=== PATIENT | male | born 1985 | race Caucasian/White ===

== ENCOUNTER 2023-12-05 09:46 | Emergency (ER) | payer OTHER ==
[2023-12-05 09:59] VITALS: RESP 18
--- NOTE | 2023-12-05 10:29 | US ---
EXAMINATION TYPE: US venous doppler duplex LE LT DATE OF EXAM: 12/05/2023 10:01 AM COMPARISON: NONE CLINICAL INDICATION: Male, 38 years old with history of dvt; Left lower leg pain and swelling, histor y of DVT, patient on blood thinners SIDE PERFORMED: Left TECHNIQUE: The lower extremity deep venous system is examined utilizing real time linear array sonog toby with graded compression, doppler sonography and color-flow sonography. VESSELS IMAGED: Common Femoral Vein Deep Femoral Vein Greater Saphenous Vein * Femoral Vein Popliteal Vein Small Saphenous Vein * Proximal Calf Veins (* superficial vessels) Grayscale, color doppler, spectral doppler imaging performed of the deep veins of the left lower extr emity. There is normal flow, compressibility, vascular waveforms. Left Leg: Appears negative for DVT IMPRESSION: No deep venous thrombosis of the left lower extremity.
[2023-12-05] MEDS: ACETAMINOPHEN TAB 500 MG TAB PO STA (11:19)
--- NOTE | 2023-12-05 11:38 | ED ---
General Adult HPI - General Chief complaint: Recheck/Abnormal Lab/Rx Stated complaint: Rule out DVT Time Seen by Provider: 12/05/23 09:50 Source: patient Mode of arrival: EMS Limitations: no limitations - History of Present Illness Initial comments: 38-year-old male presents emergency department from [facility]. Patient has been a resident there for some time. He does have history of DVT in his lower extremity. He is on Eliquis. States has been taking his medications as directed without any missed doses. Patient has had increasing swelling in his lower extremity and therefore [facility] requested that he come to the emergency department for evaluation of a new clot. Patient admits that both legs are swollen however the left is worse than the right. The left was the one that had the blood clot. He denies any missed doses of his medications. No redness or warmth. He does admit that he is more sedentary since he has been at [facility]. No other alleviating, precipitating or modifying factors - Related Data Home Medications Medication Instructions Recorded Confirmed Acetaminophen Tab [Tylenol] 650 mg PO Q4H PRN 12/05/23 12/05/23 Buprenorphine/Naloxone 8Mg/2Mg 1 film SL DAILY 12/05/23 12/05/23 [Suboxone 8-2Mg Film] Calcium Phos/D3/Magnesium/Zinc 1 tab PO TID PRN 12/05/23 12/05/23 [Trfjmyk-Aap-Ohrk-Vitamin D3] Docusate [Colace] 100 mg PO BID PRN 12/05/23 12/05/23 Ibuprofen [Motrin Ib] 600 mg PO Q6H PRN 12/05/23 12/05/23 Imipramine [Tofranil] 10 mg PO HS 12/05/23 12/05/23 Minerva Carbonate [Minerva 300 mg PO BID 12/05/23 12/05/23 Carbonate ER] Melatonin 10 mg PO HS 12/05/23 12/05/23 Multivitamins, Thera [Multivitamin 1 tab PO DAILY 12/05/23 12/05/23 (formulary)] Nicotine 21Mg/24Hr Patch [Habitrol] 1 patch TRANSDERM DAILY 12/05/23 12/05/23 QUEtiapine [SEROquel] 50 mg PO HS PRN 12/05/23 12/05/23 Rivaroxaban [Xarelto] 10 mg PO W/SUPPER 12/05/23 12/05/23 Thiamine [Vitamin B-1] 100 mg PO DAILY 12/05/23 12/05/23 buPROPion XL [Wellbutrin XL] 450 mg PO DAILY 12/05/23 12/05/23 busPIRone HCL [Buspirone HCl] 10 mg PO TID 12/05/23 12/05/23 ondansetron HCL [Zofran] 8 mg PO Q6H PRN 12/05/23 12/05/23 traZODone HCL [Desyrel] 100 mg PO HS PRN 12/05/23 12/05/23 Allergies Allergy/AdvReac Type Severity Reaction Status Date / Time No Known Allergies Allergy Verified 12/05/23 10:25 Review of Systems ROS Statement: Those systems with pertinent positive or pertinent negative responses have been documented in the HPI. ROS Other: All systems not noted in ROS Statement are negative. Past Medical History Past Medical History: Deep Vein Thrombosis (DVT) History of Any Multi-Drug Resistant Organisms: None Reported Additional Past Surgical History / Comment(s): back surgery at 18 yo and 21yo Past Psychological History: Anxiety, Depression Smoking Status: Vaper Past Alcohol Use History: None Reported Past Drug Use History: Heroin, Methamphetamine General Exam Limitations: no limitations General appearance: alert, in no apparent distress Head exam: Present: atraumatic, normocephalic, normal inspection Eye exam: Present: normal appearance, PERRL, EOMI. Absent: scleral icterus, conjunctival injection, periorbital swelling ENT exam: Present: normal exam, mucous membranes moist Neck exam: Present: normal inspection. Absent: tenderness, meningismus, lymphadenopathy Respiratory exam: Present: normal lung sounds bilaterally. Absent: respiratory distress, wheezes, rales, rhonchi, stridor Cardiovascular Exam: Present: regular rate, normal rhythm, normal heart sounds. Absent: systolic murmur, diastolic murmur, rubs, gallop, clicks GI/Abdominal exam: Present: soft, normal bowel sounds. Absent: distended, tenderness, guarding, rebound, rigid Extremities exam: Present: full ROM, normal capillary refill, pedal edema. Absent: tenderness, joint swelling, calf tenderness Back exam: Present: normal inspection Neurological exam: Present: alert, oriented X3, CN II-XII intact Psychiatric exam: Present: normal affect, normal mood Skin exam: Present: warm, dry, intact, normal color. Absent: rash Course Vital Signs 12/05/23 12/05/23 12/05/23 09:47 11:11 11:49 Temperature 98.6 F 97.9 F 98.0 F Pulse Rate 92 90 84 Respiratory 18 18 18 Rate Blood Pressure 123/79 121/77 132/75 O2 Sat by Pulse 98 98 99 Oximetry Medical Decision Making - Medical Decision Making Was pt. sent in by a medical professional or institution (ARIEL Jorge, [employer], urgent care, hospital, or custodial...) When possible be specific @ -[facility] Did you speak to anyone other than the patient for history (EMS, parent, family, police, friend...)? What history was obtained from this source @ -Spoke with EMS for history Did you review nursing and triage notes (agree or disagree)? Why? @ -I reviewed and agree with nursing and triage notes Were old charts reviewed (outside hosp., previous admission, EMS record, old EKG, old radiological studies, urgent care reports/EKG's, custodial records)? Report findings @ -No old charts were reviewed Differential Diagnosis (chest pain, altered mental status, abdominal pain women, abdominal pain men, vaginal bleeding, weakness, fever, dyspnea, syncope, headache, dizziness, GI bleed, back pain, seizure, CVA, palpatations, mental health, musculoskeletal)? @ -DVT, peripheral edema, cellulitis, abscess EKG interpreted by me (3pts min.). @ -Not done X-rays interpreted by me (1pt min.). @ -None done CT interpreted by me (1pt min.). @ -None done U/S interpreted by me (1pt. min.). @ -Yes and demonstrates no DVT What testing was considered but not performed or refused? (CT, X-rays, U/S, labs)? Why? @ -None What meds were considered but not given or refused? Why? @ -None Did you discuss the management of the patient with other professionals (professionals i.e. ARIEL Jorge, [employer], lab, RT, psych nurse, social media project manager, metal painter, teacher, safety patrol officer, egg caser)? Give summary @ -No Was smoking cessation discussed for >3mins.? @ -No Was critical care preformed (if so, how long)? @ -No Were there social determinants of health that impacted care today? How? (Homelessness, low income, unemployed, alcoholism, drug addiction, transportation, low edu. Level, literacy, decrease access to med. care, [facility], rehab)? @ -Patient is in rehab Was there de-escalation of care discussed even if they declined (Discuss DNR or withdrawal of care, Hospice)? DNR status @ -No What co-morbidities impacted this encounter? (DM, HTN, Smoking, COPD, CAD, Cancer, CVA, ARF, Chemo, Hep., AIDS, mental health diagnosis, sleep apnea, morbi d obesity)? @ -Intravenous drug use, DVT Was patient admitted / discharged? Hospital course, mention meds given and route, prescriptions, significant lab abnormalities, going to OR and other pertinent info. @ -Upon arrival patient seen and evaluated in room 14. Thorough history and physical exam was performed. Patient does have some bilateral lower extremity edema. Ultrasound was performed which demonstrates no DVT. Patient is given a prescription for compression stockings. Instructed to keep his extremities elevated. He is placed in Alan wraps to assist with some of the swelling at this time. Patient to follow-up with his vascular surgeon Undiagnosed new problem with uncertain prognosis? @ -No Drug Therapy requiring intensive monitoring for toxicity (Heparin, Nitro, Insulin, Cardizem)? @ -No Were any procedures He is to follow-up with his vascular surgeon and return for any new or worsening symptomsdone? @ -No Diagnosis/symptom? @ -Acute on chronic bilateral lower extremity swelling, history of DVT Acute, or Chronic, or Acute on Chronic? @ -Acute Uncomplicated (without systemic symptoms) or Complicated (systemic symptoms)? @ -Complicated Side effects of treatment? @ -No Exacerbation, Progression, or Severe Exacerbation? @ -No Poses a threat to life or bodily function? How? (Chest pain, USA, AR, pneumonia, PE, COPD, DKA, ARF, appy, cholecystitis, CVA, Diverticulitis, Homicidal, Suicidal, threat to staff... and all critical care pts) @ -No Disposition Clinical Impression: Leg edema Disposition: HOME SELF-CARE Condition: Stable Instructions (If sedation given, give patient instructions): Edema (ED) Additional Instructions: Please wear the Alan wraps until you obtain the compression stockings. Rest and elevate your extremities. Continue taking the Eliquis and return for any new or worsening symptoms Is patient prescribed a controlled substance at d/c from ED?: No Referrals: None,Stated [Primary Care Provider] - 1-2 days Time of Disposition: 11:38
[2023-12-05 11:52] VITALS: BP 132/75; PULSE 84; TEMP 98
== END 2023-12-05 11:55 | disposition home or self-care (01) ==
LOC: EC 09:46
DX: R60.0 Localized edema (principal); F17.290 Nicotine dependence, other tobacco product, uncomplicated; F15.90 Other stimulant use, unspecified, uncomplicated
CPT/HCPCS: 99284